=== PATIENT | female | born 1970 | race Caucasian/White ===

== ENCOUNTER 2022-07-12 09:02 | Outpatient (CLI) | payer BC, SELFPAY | END 2022-07-12 09:03 | disposition home or self-care (01) | PROVIDERS: PCP Family Medicine; Visit Provider Obstetrics & Gynecology | DX: Z01.419 Encounter for gynecological examination (general) (routine) without abnormal findings (principal); Z13.29 Encounter for screening for other suspected endocrine disorder | CPT/HCPCS: 84443 ==

== ENCOUNTER 2023-07-20 21:27 | Emergency (ER) | payer BC, SELFPAY ==
[2023-07-20 22:03] VITALS: BP 169/104; PULSE 84; RESP 18; TEMP 36.1; O2SAT 97
--- NOTE | 2023-07-20 22:31 | CRLHL7_ITS ---
For Patients: As a result of the Century Cures Act, medical imaging exams and procedure reports are released immediately into your electronic medical record. You may view this report before your referring provider. If you have questions, please contact your health care provider. INDICATION: RT FLANK PAIN. TECHNIQUE: CT abdomen and pelvis without contrast. COMPARISON: None. FINDINGS: Limited evaluation of the intra-abdominal solid organs without IV contrast. Lower chest: Unremarkable. Liver: Normal in size and attenuation. No suspicious masses. Gallbladder and bile ducts: No stones or inflammation. No biliary dilatation. Pancreas: Unremarkable. No mass or inflammation. Spleen: Normal in size. No masses. Adrenal glands: Normal in size. No nodules. Kidneys: Normal in size. No suspicious masses, stones, or hydronephrosis. Bilateral slightly dense exophytic lesions, likely proteinaceous/hemorrhagic cysts. Punctate nonobstructing stone at inferior pole of the right kidney. GI tract: Unremarkable. Normal in caliber. No sign of mass or inflammation. Normal appendix. Vasculature: Abdominal aorta is normal in caliber. Lymph nodes: No lymphadenopathy. Peritoneum/Abdominal Wall: Unremarkable. No sign of mass or infiltration. No free air or significant free fluid. Pelvis: Unremarkable. No pelvic masses. Bones: Unremarkable for age. IMPRESSION: No hydronephrosis or hydroureter. Punctate non-obstructing stone at the inferior pole of the right kidney. Please note that all CT scans at this facility use dose modulation, iterative reconstruction, and/or weight-based dosing when appropriate to reduce radiation dose to as low as reasonably achievable. Dictated by Waqas Cameron MD @ 07/20/2023 11:07:04 PM (Electronically Signed)
[2023-07-20] MEDS: KETOROLAC 15 MG/ML inj IVP (22:55)
[2023-07-20 23:00] LABS: Basophils Absolute Auto 0.06 K/uL (0.00-0.30); Basophils Percent Auto 0.6 % (0.0-3.0); Eosinophils Absolute Auto 0.22 K/uL (0.00-0.50); Eosinophils Percent Auto 2.2 % (0.0-7.0); Hematocrit 39.4 % (33.0-51.0); Hemoglobin* 13.1 gm/dL (12.0-16.0); Immature Granulocytes Abs Auto 0.07 K/uL (0.00-0.30); Immature Granulocytes Pct Auto 0.7 %; Lymphocytes Absolute Auto 2.57 K/uL (0.90-2.90); Lymphocytes Percent Auto 25.9 % (20-44); Mean Corpuscular HGB Conc 33 gm/dL (32-36); Mean Corpuscular Hemoglobin 31 pg (26-34); Mean Corpuscular Volume 94 fL (80-100); Monocytes Percent Auto 8.2 % (0.0-11.0); Neutrophils Absolute Auto 6.18 K/uL (1.7-7.0); Neutrophils Percent Auto 62.4 % (42.0-72.0); Platelet Count* 275 K/uL (140-440); RDW Coefficient of Variation % 12.2 % (11.5-15.5); White Blood Count* 9.91 K/uL (4.50-11.00)
--- NOTE | 2023-07-20 23:10 | ED.GENADULT ---
HPI - General Adult General Date Seen: 07/20/23 Chief complaint: Flank Pain Stated complaint: back pain radiating to front Time Seen by Provider: 07/20/23 22:15 Source: patient Mode of arrival: ambulatory Limitations: no limitations History of Present Illness HPI narrative: Patient is a 52-year-old female presenting emergency department for right-sided midback pain. Says the pain started couple days ago when she woke up. Has been gradually getting worse. She does not know of any trauma she has had to the back. Has never had pain like this before. Pain does radiate to her right upper quadrant. Has never had issues with her gallbladder before. Denies fevers, chills, weakness, numbness, diarrhea, constipation, chest pain, shortness of breath. Has not had any hematuria or dysuria. No history of kidney stones. Only previous abdominal surgeries for hysterectomy. Has had normal bowel movements. Eating and drinking without issue. Related Data Home Medications Medication Instructions Recorded Confirmed Bacillus coagulans-inulin 1 2 cap PO QDAY 07/12/22 03/04/23 billion cell-250 mg capsule (Probiotic with Prebiotic) lactobacillus combination no.9 4 4,000 mmu cells PO QDAY 07/12/22 03/04/23 billion cell capsule (Adult 50 Plus Probiotic) esomeprazole magnesium 40 mg 40 mg PO QDAY 01/25/23 03/04/23 capsule,delayed release Previous Rx's Medication Instructions Recorded fluoxetine 10 mg capsule (Prozac) 10 mg PO QDAY #90 caps 01/25/23 celecoxib 200 mg capsule 200 mg PO QDAY #21 caps 04/01/23 norgestimate 0.25 mg-ethinyl 1 tab PO QDAY #84 tabs 07/04/23 estradiol 35 mcg tablet (Sprintec (28)) albuterol sulfate 90 mcg/actuation 2 puff inhalation Q4-6H PRN 07/13/23 aerosol inhaler shortness of breath or wheezing #8.5 grams Allergies Allergy/AdvReac Type Severity Reaction Status Date / Time gadodiamide Allergy Mild Rash Verified 03/04/23 08:37 adhesive Allergy Unknown Rash Verified 03/04/23 08:37 nickel Allergy Unknown Verified 03/04/23 08:37 Contrast dye Allergy Mild Rash Uncoded 03/04/23 08:37 Review of Systems Status of ROS: Reports: 10 or more systems reviewed and unremarkable except as noted in History and below [facility] Medical History Abnormal Pap smear of cervix ?R87.619 - Unspecified abnormal cytological findings in specimens from cervix uteri (ICD-10) History of peptic ulcer ?Z87.11 - Personal history of peptic ulcer disease (ICD-10) Surgical History Status post delivery (08/13/13) ?Z98.891 - History of uterine scar from previous surgery (ICD-10) History of loop electrosurgical excision procedure (LEEP) of cervix (08/13/13) ?Z98.890 - Other specified postprocedural states (ICD-10) History of left oophorectomy (08/13/13) ?Z90.721 - Acquired absence of ovaries, unilateral (ICD-10) Family History Other Colon cancer Social History Smoking Status: Former smoker Little interest or pleasure in doing things: not at all Feeling down, depressed, or hopeless: not at all Exam Narrative: Exam Narrative: Const: Well-nourished, Well-developed, in mild distress Eyes: PERRL, no conjunctival injection, and symmetrical lids HENT: Atraumatic external nose and ears. Moist mucous membranes. Neck: Symmetric, trachea midline, No thyromegaly. CVS: RRR, No murmurs or gallops. Peripheral pulses 2+ and equal in all extremities RESP: Unlabored respiratory effort. Clear to auscultation bilaterally. GI: Nontender/Nondistended, No rebound or guarding. MSK:Extremities w/o deformity, Normal Active ROM pain just lateral to midline spine around T12, negative straight leg test bilaterally Skin: Warm, Dry. No rashes or lesions. Neuro: Normal Muscle tone, No focal neurological deficits. Psych: Awake, Alert, & Oriented x3. Appropriate mood and affect. Const: Vital Signs, click to edit/add: Vital Signs - 24 hr 07/20/23 22:03 Temperature 97.0 F L Pulse Rate [Left P ulse Oximeter] 84 Respiratory Rate 18 Blood Pressure [Ri ght Upper Arm] 169/104 H Pulse Oximetry 97 Oxygen Delivery Me thod Room Air Course Vital Signs Vital signs: Initial Vital Signs Temperature 97.0 F L 07/20/23 22:03 Temperature Source Temporal Artery Scan 07/20/23 22:03 Pulse Rate 84 07/20/23 22:03 Pulse Rhythm Regular 07/20/23 22:03 Respiratory Rate 18 07/20/23 22:03 Blood Pressure 169/104 H 07/20/23 22:03 Blood Pressure Mean 125 H 07/20/23 22:03 Blood Pressure Position Sitting 07/20/23 22:03 Pulse Oximetry 97 07/20/23 22:03 Oxygen Delivery Method Room Air 07/20/23 22:03 Vital Signs Temperature 97.0 F L 07/20/23 22:03 Pulse Rate 84 07/20/23 22:03 Respiratory Rate 18 07/20/23 22:03 Blood Pressure 169/104 H 07/20/23 22:03 Pulse Oximetry 97 07/20/23 22:03 Oxygen Delivery Method Room Air 07/20/23 22:03 Temperature 97.0 F L 07/20/23 22:03 Pulse Rate 84 07/20/23 22:03 Respiratory Rate 18 07/20/23 22:03 Blood Pressure 169/104 H 07/20/23 22:03 Pulse Oximetry 97 07/20/23 22:03 Oxygen Delivery Method Room Air 07/20/23 22:03 Medical Decision Making MDM Narrative Medical decision making narrative: Patient is a 52-year-old female presenting to the emergency department for back pain. Pain does wrap around to her right upper quadrant. She is tender to palpation more just lateral to the lumbar spine. Concerning the symptoms differential includes cholecystitis, liver disease, nephrolithiasis, muscle strain. Unlikely to be a AAA rupture this time as she is otherwise stable and does not have many risk factors for it. Cbc and CMP showed no concerning abnormalities. CT scan of the abdomen and pelvis shows only a intrarenal nonobstructing stone. Initially order urinalysis for concerned she could have a kidney stone but since she does not and is not having any urinary symptoms this is no longer needed. No signs of liver disease at this time. Considering the symptoms and the negative straight leg test this is most likely muscle strain. No signs of a herniated disc. No red flag symptoms she is not having loss of bowel or bladder control no saddle anesthesia. Patient is feeling better after the Toradol. She can be discharged home. She is agreeable to this plan. We will send her home with Flexeril from [facility] Lab Data Labs: Lab Results 07/20/23 Range/Units 22:53 WBC 9.91 (4.50-11.00) K/uL RBC 4.20 (4.00-5.20) m/uL Hgb 13.1 (12.0-16.0) gm/dL Hct 39.4 (33.0-51.0) % MCV 94 (80-100) fL MCH 31 (26-34) pg MCHC 33 (32-36) gm/dL RDW Coeff of Jc 12.2 (11.5-15.5) % Plt Count 275 (140-440) K/uL Neut % (Auto) 62.4 (42.0-72.0) % Lymph % (Auto) 25.9 (20-44) % [place] % (Auto) 8.2 (0.0-11.0) % Eos % (Auto) 2.2 (0.0-7.0) % Baso % (Auto) 0.6 (0.0-3.0) % Neut # (Auto) 6.18 (1.7-7.0) K/uL Lymph # (Auto) 2.57 (0.90-2.90) K/uL [place] # (Auto) 0.80 (0.00-0.90) K/UL Eos # (Auto) 0.22 (0.00-0.50) K/uL Baso # (Auto) 0.06 (0.00-0.30) K/uL Abs Immat Gran (auto) 0.07 (0.00-0.30) K/uL Imm/Tot Granulo (auto) 0.7 % Sodium 135 (135-149) mmol/L Potassium 3.8 (3.6-5.1) mmol/L Chloride 102 (96-114) mmol/L Carbon Dioxide 23 (20-32) mmol/L Anion Gap 10 (7-15) mEq/L BUN 15 (7-30) mg/dL Creatinine 0.6 (0.5-1.5) mg/dL Estimated GFR 109 ml/min Glucose 115 (60-115) mg/dL Calcium 9.2 (8.4-10.6) mg/dL Total Bilirubin 0.3 (0.1-1.5) mg/dL AST 32 (12-35) U/L ALT 17 (4-35) U/L Alkaline Phosphatase 83 (40-150) U/L Total Protein 7.5 (6.0-8.3) g/dL Albumin 4.2 (3.3-5.0) g/dL Imaging Data Abdomen pelvis CT: Radiologist's impression: INDICATION: RT FLANK PAIN. TECHNIQUE: CT abdomen and pelvis without contrast. COMPARISON: None. FINDINGS: Limited evaluation of the intra-abdominal solid organs without IV contrast. Lower chest: Unremarkable. Liver: Normal in size and attenuation. No suspicious masses. Gallbladder and bile ducts: No stones or inflammation. No biliary dilatation. Pancreas: Unremarkable. No mass or inflammation. Spleen: Normal in size. No masses. Adrenal glands: Normal in size. No nodules. Kidneys: Normal in size. No suspicious masses, stones, or hydronephrosis. Bilateral slightly dense exophytic lesions, likely proteinaceous/hemorrhagic cysts. Punctate nonobstructing stone at inferior pole of the right kidney. GI tract: Unremarkable. Normal in caliber. No sign of mass or inflammation. Normal appendix. Vasculature: Abdominal aorta is normal in caliber. Lymph nodes: No lymphadenopathy. Peritoneum/Abdominal Wall: Unremarkable. No sign of mass or infiltration. No free air or significant free fluid. Pelvis: Unremarkable. No pelvic masses. Bones: Unremarkable for age. IMPRESSION: No hydronephrosis or hydroureter. Punctate non-obstructing stone at the inferior pole of the right kidney. Please note that all CT scans at this facility use dose modulation, iterative reconstruction, and/or weight-based dosing when appropriate to reduce radiation dose to as low as reasonably achievable. Dictated by Waqas Cameron MD @ 07/20/2023 11:07:04 PM Discharge Plan Discharge Clinical Impression: Low back strain Qualifiers: Encounter type: initial encounter Qualified Code(s): S39.012A - Strain of muscle, fascia and tendon of lower back, initial encounter Patient Disposition: Home, Self-Care Condition: Improved Instructions: Low Back Strain (ED) Additional Instructions: Take ibuprofen and Flexeril for pain. If symptoms continue follow-up the primary care provider. Return for new or worsening symptoms. Prescriptions: No Action Probiotic with Prebiotic 1 billion-250 cell-mg capsule 2 cap PO QDAY Adult 50 Plus Probiotic 4 billion cell capsule 4,000 mmu cells PO QDAY Rx Instructions: administer with a meal fluoxetine [Prozac] 10 mg capsule 10 mg PO QDAY Qty: 90 3RF esomeprazole magnesium 40 mg capsule,delayed release(DR/EC) 40 mg PO QDAY celecoxib 200 mg capsule 200 mg PO QDAY Qty: 21 1RF norgestimate-ethinyl estradiol [Sprintec (28)] 0.25-35 mg-mcg tablet 1 tab PO QDAY Qty: 84 2RF albuterol sulfate 90 mcg/actuation HFA aerosol inhaler 2 puff inhalation Q4-6H PRN (Reason: shortness of breath or wheezing) Qty: 8.5 3RF Follow Up/Referrals: Juan C Zaman MD [Primary Care Provider] - Stand Alone Forms: [employer]) Info Instructions
[2023-07-20 23:13] LABS: Albumin* 4.2 g/dL (3.3-5.0); Chloride* 102 mmol/L (96-114); Potassium* 3.8 mmol/L (3.6-5.1); Sodium* 135 mmol/L (135-149)
[2023-07-20 23:15] LABS: Anion Gap 10 mEq/L (7-15); Bilirubin Total* 0.3 mg/dL (0.1-1.5); Carbon Dioxide* 23 mmol/L (20-32); Creatinine* 0.6 mg/dL (0.5-1.5); Estimated Glomerular Filt Rate 109 ml/min
[2023-07-20 23:16] LABS: Alanine Aminotransferase* 17 U/L (4-35); Alkaline Phosphatase* 83 U/L (40-150); Aspartate Amino Transferase* 32 U/L (12-35); Blood Urea Nitrogen* 15 mg/dL (7-30); Glucose* 115 mg/dL (60-115); Total Protein* 7.5 g/dL (6.0-8.3)
[2023-07-20 23:17] LABS: Calcium* 9.2 mg/dL (8.4-10.6)
[2023-07-20 23:20] LABS: Slide Review Reflex No
[2023-07-20 23:35] VITALS: BP 144/62; PULSE 66; RESP 16; O2SAT 99
== END 2023-07-20 23:39 | disposition home or self-care (01) ==
PROVIDERS: Emergency Provider Student in an Organized Health Care Education/Training Program; PCP Family Medicine
DX: S39.012A Strain of muscle, fascia and tendon of lower back, initial encounter (principal)
CPT/HCPCS: 36415; 74176; 80053; 81001; 85025; 96374; 99283; 99284; J1885

== ENCOUNTER 2023-08-05 09:00 | Outpatient (CLI) | payer BC, SELFPAY | END 2023-08-05 09:01 | disposition home or self-care (01) | LOC: NFLDREF 08-08 08:08 | PROVIDERS: PCP Family Medicine; Referring Provider Family Medicine; Visit Provider Obstetrics & Gynecology | DX: Z01.419 Encounter for gynecological examination (general) (routine) without abnormal findings (principal); E78.00 Pure hypercholesterolemia, unspecified | CPT/HCPCS: 80061 ==

== ENCOUNTER 2023-12-05 07:57 | Outpatient (CLI) | payer BC, SELFPAY ==
--- NOTE | 2023-12-05 08:15 | MM_ITS ---
Final Report Patient: HILLARY KAY Facility:?[facility] Patient ID:?[id number] :?[id number] Study:?XRay Breast Bilateral 3D W/CAD-12/05/2023 8:23:59 AM Ordering Physician:Puja Cole Final Report: BILATERAL SCREENING MAMMOGRAM WITH COMPUTER-AIDED DETECTION AND TOMOSYNTHESIS TECHNIQUE: CC and MLO views were obtained. These mammographic images have been obtained using full-field digital technique. These mammographic images were interpreted with the benefit of computer-aided detection. Breast Tomosynthesis was used in this interpretation. COMPARISON FILM: 02/02/22, 06/20/20, 07/18/17. FINDINGS: There are scattered areas of fibroglandular density. IMPRESSION: There is no radiographic evidence for malignancy. ASSESSMENT: BI-RADS Category 1: Negative RECOMMENDATION: Routine screening mammogram in 1 year. A lay language report of this examination will be provided to the patient. Say Beebe M.D. Diagnostic Radiologist [email or web address] DSM/sp R& Transcribed: 6:38 p.m. SP/Dictated by: Say Beebe MD @ 12/05/2023 8:56:00 AM (Electronic Signature)
== END 2023-12-05 07:58 | disposition home or self-care (01) ==
PROVIDERS: PCP Family Medicine; Visit Provider Obstetrics & Gynecology
DX: Z12.31 Encounter for screening mammogram for malignant neoplasm of breast (principal)
CPT/HCPCS: 77063; 77067